=== PATIENT | female | born 1970 | race Caucasian/White ===

== ENCOUNTER 2017-04-05 06:01 | Day surgery (SDC) | payer OTHER ==
[2017-04-03 11:39] LABS: BASOPHILS 0.3 %; BASOPHILS ABSOLUTE 0.02 10/3/uL (0.0-0.16); EOSINOPHILS 1.7 %; EOSINOPHILS ABSOLUTE 0.11 10/3/uL (0.0-0.53); HEMATOCRIT 45.3 % (36.0-48.0); HEMOGLOBIN 15.3 g/dL (12.0-16.0); IMMATURE GRANULOCYTES 0.2 %; IMMATURE GRANULOCYTES ABSOLUTE 0.01 10/3/uL (0.0-0.11); LYMPHOCYTES 29.6 %; LYMPHOCYTES ABSOLUTE 1.89 10/3/uL (0.67-4.30); MEAN CORPUS HGB CONC 33.8 g/dL (32.0-36.0); MEAN CORPUSCULAR HEMOGLOB 32.1 pg (26.0-34.0); MEAN PLATELET VOLUME 10.7 fL (9.2-13.0); MONOCYTES ABSOLUTE 0.38 10/3/uL (0.21-1.20); NEUTROPHILS 62.2 %; NEUTROPHILS ABSOLUTE 3.97 10/3/uL (2.02-8.40); PLATELET COUNT 294 10/3/uL (150-400); RED CELL COUNT 4.77 10/6/uL (4.0-5.6); WHITE BLOOD CELLS 6.4 10/3/uL (4.5-10.5)
[2017-04-03 11:41] LABS: MANUAL DIFF NO %
[2017-04-03 12:14] LABS: A/G RATIO 1.2 (0.7-1.9); ALBUMIN 3.9 G/DL (3.5-5.0); ALKALINE PHOSPHATASE 57 U/L (45-117); BUN (BLOOD UREA NITROGEN) 13 MG/DL (6-23); CALCIUM, SERUM 9.3 MG/DL (8.5-10.4); CHLORIDE, SERUM 108 MMOL/L (96-112); CO2 (CARBON DIOXIDE) 22 MMOL/L (24-34); CREATININE 0.86 MG/DL (0.55-1.02); GFR AFRICAN AMERICAN 93 ML/MIN (>=60); GFR NON AFRICAN AMERICAN 80 ML/MIN (>=60); GLOBULIN 3.2 G/DL (2.5-4.1); GLUCOSE, SERUM 80 MG/DL (60-99); POTASSIUM, SERUM 4.5 MMOL/L (3.5-5.3); SGOT(AST) 14 U/L (5-40); SGPT(ALT) 15 U/L (5-65); SODIUM, SERUM 141 MMOL/L (135-148); TOTAL BILIRUBIN 0.5 MG/DL (0-1.2); TOTAL PROTEIN 7.1 G/DL (6.0-8.5)
--- NOTE | ~2017-04-05 | OP ---
Record Of Operation [facility] [address] [place]. [address] NAME: BREN HARRIS : 70 STATUS : [facility]#: [id number] AGE: 47 ADM/REG DATE : 04/05/17 MR#: [id number] REPORT SERV DATE: 04/13/17 DICTATED BY: MIRZA FREEMAN DATE: 04/12/17 REPORT STATUS : Draft TRANSCRIBED BY: MODSuly DATE: 04/12/17 DATE OF PROCEDURE: 04/05/2017 PREOPERATIVE DIAGNOSIS: Large fibroid uterus. POSTOPERATIVE DIAGNOSIS: Large fibroid uterus. PROCEDURE: Laparoscopic hysterectomy and bilateral salpingectomy. CPT code 58618. SURGEON: Mirza Freeman M.D. ESTIMATED BLOOD LOSS: 20 mL. FLUIDS IN: 1600 mL of crystalloid. ANESTHESIA: General endotracheal. INDICATION AND FINDINGS: This is a 47-year-old female, who was taken to the operating room for a large fibroid uterus. She has requested that her ovaries be left in situ. A laparoscopic hysterectomy with removal of the fallopian tubes was performed. The uterus was too large to be taken through the vagina. A low-transverse Pfannenstiel skin incision was made and the uterus was removed intact, examined on the back table and appeared to be consistent with a benign fibroid uterus. Both ovaries were sutured to the round ligaments bilaterally. Postprocedure, a cystoscopy was performed with excellent bilateral ureteral jets. No evidence of bladder defect. Prior to the induction of anesthesia, the patient was treated with Lovenox for DVT prophylaxis. She was also given prophylactic antibiotic. PROCEDURE IN DETAIL: The patient with bipolar cautery, cauterized, and transected bilaterally. The uterine arteries were then skeletonized at the level of the cervix, grasped with bipolar cautery, cauterized and then transected bilaterally. The uterosacral cardinal complexes were then taken down with unipolar cautery. Anteriorly, a bladder flap was created and taken down to the level well below the cervix. The circumferential incision was then made around the cervix and vagina, and the uterus, cervix, and both fallopian tubes were amputated from the vagina and left in the abdominal cavity. The vaginal cuff was then closed with a running stitch of #1 PDS V-Loc. The ovaries were then tacked to the round ligaments bilaterally using 2-0 Vicryl suture. The pelvis was then irrigated with copious amounts of warm water. All pedicles were inspected and found to be hemostatic. At this point of the procedure, a cystoscopy was performed with excellent bilateral ureteral jets. No evidence of bladder defect. The patient was undocked from the laparoscopic robotic instrument. The initial incision was closed with 0 Vicryl at the fascia. The 12-mm port was closed with a Tony-Jim closure device. A low-transverse skin incision was then made, carried down to the underlying layer of fascia. The fascia was incised. The rectus muscles were . The perineum tented up and entered sharply. The peritoneal incision was extended bilaterally. The uterus, cervix, and both fallopian tubes were then delivered through the low-transverse incision. They were delivered intact and examined on the back table with the above findings noted. The wound was then irrigated Record Of Operation [address] [address] NAME: BREN HARRIS : 70 STATUS : [facility] PAT#: [id number] AGE: 47 ADM/REG DATE : 04/05/17 MR#: [id number] REPORT SERV DATE: 04/13/17 DICTATED BY: MIRZA FREEMAN DATE: 04/12/17 REPORT STATUS : Draft TRANSCRIBED BY: CARLENE DATE: 04/12/17 with copious amounts of warm water. The peritoneum was then reapproximated using a running stitch of 2-0 Vicryl. The fascia was reapproximated using a running stitch of #1 PDS. The subcutaneous tissue was reapproximated using 2-0 Vicryl and the skin was closed with a running subcuticular 4-0 Monocryl. At the completion of the procedure, the anesthesia was reversed. The patient was extubated and then brought to the recovery room in stable condition. BULL/CARLENE Mirza Freeman M.D. / [id number] CC: Sam Andrea M.D.
[~2017-04-05 06:01] MED LIST: PORTIA-28 PO
== END 2017-04-05 18:16 | disposition home or self-care (01) ==
LOC: SDC 06:01
PROVIDERS: Obstetrics & Gynecology Gynecologic Oncology
PROC: 0UT94ZZ Resection of Uterus, Percutaneous Endoscopic Approach (ICD-10-PCS; principal; 2017-04-05 07:00)
PROC: 0UTC4ZZ Resection of Cervix, Percutaneous Endoscopic Approach (ICD-10-PCS; 2017-04-05 07:00)
PROC: 0UT74ZZ Resection of Bilateral Fallopian Tubes, Percutaneous Endoscopic Approach (ICD-10-PCS; 2017-04-05 07:00)
DX: D25.9 Leiomyoma of uterus, unspecified (principal); N80.0 Endometriosis of uterus; N88.8 Other specified noninflammatory disorders of cervix uteri; G43.909 Migraine, unspecified, not intractable, without status migrainosus; Z79.818 Long term (current) use of other agents affecting estrogen receptors and estrogen levels
CPT/HCPCS: 36415; 71020; 80053; 84703; 85025; 86850; 86900; 86901; 88112; 88305; 88307; 93005; A9270-GY; J0694; J1170; J1885; J2250; J2405; J2550; J2710; J2795; J3010